=== PATIENT | female | born 1980 | race Caucasian/White ===

== ENCOUNTER → 2021-01-17 | Outpatient (CLI) | payer BC ==
--- NOTE | 2021-01-17 12:05 | CT ---
EXAMINATION TYPE: CT abdomen w con DATE OF EXAM: 01/17/2021 COMPARISON: NONE HISTORY: 40-year-old female K86.89, pancreatic mass, lump in stomach TECHNIQUE: Contiguous axial scanning of the abdomen following administration of 100 ml Isovue 300 IV contrast. Arterial phase and portal venous phase imaging is performed per pancreas protocol. Coronal /sagittal reconstructions performed. CT DLP: 280.2 mGycm Automated exposure control for dose reduction was used. FINDINGS: Heart normal size without pericardial effusion. Lung bases clear without pleural effusion. There is a 1.7 cm lesion posterior right hepatic dome that shows peripheral nodular enhancement sugge sting a benign hemangioma. Some focal fat along the anterior falciform ligament. Portal venous system is patent. Incidental 1.8 cm round fluid attenuating lesion adjacent to the cardiac apex. Favored small pericard iac cyst rather than a necrotic lymph node but follow-up is recommended. Gallbladder, adrenal glands, kidneys, spleen within normal limits. There is bulbous configuration to the head of the pancreas, refer to axial image 16 and coronal image 44. Enhancement is the same as pancreatic parenchyma elsewhere. No discrete mass is identified. No dilated small bowel, free fluid, or free air. No mesenteric or retroperitoneal lymphadenopathy. Mild to moderate stool. Some diverticular change at the junction of the descending and sigmoid colon. No pericolonic inflammatory change. Pelvis is not imaged. Bones: No osseous destructive process. IMPRESSION: 1. BULBOUS CONFIGURATION TO THE HEAD OF THE PANCREAS. ENHANCEMENT IS SIMILAR TO THE REMAINDER OF THE PANCREATIC TISSUE. UNABLE TO DELINEATE A DISCRETE MASS HERE. FINDINGS FAVORED TO REPRESENT NORMAL RUTH TOMIC VARIATION. IF THERE IS PERSISTENT CONCERN SUCH WITH ELEVATED TUMOR MARKERS OR OTHER LABORATO RY ASSESSMENT, EITHER FOLLOW-UP EUS OR PANCREAS MRI CAN BE CONSIDERED. 2. A 1.8 CM ROUND LESION IN THE LEFT PERICARDIAC REGION, FAVORED SMALL PERICARDIAC CYST RATHER THAN A NECROTIC LYMPH NODE. [address] MONTH FOLLOW-UP CT RECOMMENDED TO DEMONSTRATE STABILITY.
== END | disposition home or self-care (01) ==
LOC: RADCTMAIN 08:22
PROVIDERS: ATTEND Surgery Plastic and Reconstructive Surgery
DX: R93.3 Abnormal findings on diagnostic imaging of other parts of digestive tract (principal)
CPT/HCPCS: 74160; Q9967

== ENCOUNTER → 2021-01-22 | Outpatient (CLI) | payer BC | END | disposition home or self-care (01) | DX: K86.89 Other specified diseases of pancreas (principal) | CPT/HCPCS: 36415; 82378; 86301 ==

== ENCOUNTER 2021-02-04 08:16 | Day surgery (SDC) | payer BC ==
[2021-01-31 15:37] VITALS: BMI 23.1
--- NOTE | 2021-02-04 07:36 | P.GSHP ---
History of Present Illness H&P Date: 02/04/21 CHIEF COMPLAINT: GERD HISTORY OF PRESENT ILLNESS: The patient is a 40-year-old female who presents reports gastroesophageal reflux disease. Upper endoscopy was offered for further evaluation and management. PAST MEDICAL HISTORY: Please see list. PAST SURGICAL HISTORY: Please see list. MEDICATIONS: Please see list. ALLERGIES: Please see list. SOCIAL HISTORY: No illicit drug use FAMILY HISTORY: No reports of Crohn disease or ulcerative colitis. REVIEW OF ORGAN SYSTEMS: CONSTITUTIONAL: No reports of fevers or chills. GI: Denies any blood in stools or constipation. PHYSICAL EXAM: VITAL SIGNS: Stable GENERAL: Well-developed and pleasant in no acute distress. HEENT: No scleral icterus. Extraocular movements grossly intact. Moist buccal mucosa. NECK: Supple without lymphadenopathy. CHEST: Unlabored respirations. Equal bilateral excursions. CARDIOVASCULAR: Regular rate and rhythm. Distal 2+ pulses. ABDOMEN: Soft, nondistended. MUSCULOSKELETAL: No clubbing, cyanosis, or edema. ASSESSMENT: 1. Gastroesophageal reflux disease PLAN: 1. Recommend proceeding with an upper endoscopy Past Medical History Past Medical History: No Reported History Additional Past Medical History / Comment(s): STATES RECENT "LUMP ON STOMACH" History of Any Multi-Drug Resistant Organisms: None Reported Past Surgical History: No Surgical Hx Reported Past Anesthesia/Blood Transfusion Reactions: Motion Sickness Additional Past Anesthesia/Blood Transfusion Reaction / Comment(s): NO ANESTHESIA HX Past Psychological History: No Psychological Hx Reported Smoking Status: Never smoker Past Alcohol Use History: Heavy Past Drug Use History: None Reported - Past Family History Mother Family Medical History: No Reported History Medications and Allergies Home Medications Medication Instructions Recorded Confirmed Type No Known Home Medications 01/31/21 01/31/21 History Allergies Allergy/AdvReac Type Severity Reaction Status Date / Time No Known Allergies Allergy Verified 01/31/21 15:28
[~2021-02-04 08:16] MED LIST: LACTATED RINGERS 1,000 ML IV SCH; LIDOCAINE 1% (10MG/ML) FOR IV START INTRADERMA PRN
[2021-02-04 08:48] VITALS: TEMP 98.7
[2021-02-04] MEDS ORDERED: LIDOCAINE 1% INJ 10MG/ML (20 ML MDV) ONE (09:27)
[2021-02-04] MEDS ORDERED: PROPOFOL 10 MG/ML 20 ML VIAL IV ONE (09:27)
[2021-02-04 10:18] VITALS: BP 115/79; PULSE 82; RESP 18
--- NOTE | 2021-02-04 10:23 | P.PCN ---
Date of Procedure: 02/04/21 Description of Procedure: PREOPERATIVE DIAGNOSIS: Hiatal hernia Epigastric pain POSTOPERATIVE DIAGNOSIS: Gastritis. Gastroesophageal reflux disease. Diaphragmatic hiatal hernia OPERATION: Esophagogastroduodenoscopy with biopsies along antrum. SURGEON: Jennifer Del Real MD ANESTHESIA: MAC. INDICATIONS: The patient is a 40-year-old female who presents with a history of reflux disease. Benefits and risks of the procedure were described. Informed consent was obtained. DESCRIPTION: The patient was brought into the endoscopy suite and laid in the left lateral decubitus position. An Olympus gastroscope was passed along the posterior oropharynx down to the distal esophagus where the squamocolumnar junction was encountered at 33 cm from the incisors. The stomach was entered and no bile reflux was found. Additional findings are listed below. Biopsies with cold forceps were obtained of the antrum. The first through third portion of the duodenum was examined and unremarkable. Retroflexion of the scope confirmed Hill grade 3 lower esophageal valve. The squamocolumnar junction demonstrated LA grade B erosive esophagitis. The stomach was desufflated. The patient tolerated the procedure well. FINDINGS: Squamocolumnar junction 33 cm from the incisors. Diaphragmatic hiatus at 36 cm. Hiatal hernia, 3 cm Hill grade 3 lower esophageal valve. LA grade B erosive esophagitis. No active duodenitis. Chronic gastritis RECOMMENDATIONS: Upper endoscopy as needed. Plan - Discharge Summary New Discharge Prescriptions: Continue No Known Home Medications Discharge Medication List No Known Home Medications 01/31/21 [History] Follow up Appointment(s)/Referral(s): Jennifer Del Real MD [STAFF PHYSICIAN] - 02/26/21 Patient Instructions/Handouts: *Surgery [facility] - (Anesthesia) Endoscopy Discharge Instructions, Upper Endoscopy (DC), Hiatal Hernia (DC) Discharge Disposition: HOME SELF-CARE
== END 2021-02-04 11:10 | disposition home or self-care (01) ==
LOC: ORWHC2ENDO 08:16
PROVIDERS: ATTEND Surgery Plastic and Reconstructive Surgery
DX: K29.50 Unspecified chronic gastritis without bleeding (principal); K44.9 Diaphragmatic hernia without obstruction or gangrene; K21.9 Gastro-esophageal reflux disease without esophagitis; R10.13 Epigastric pain; I25.10 Atherosclerotic heart disease of native coronary artery without angina pectoris; T75.3XXA Motion sickness, initial encounter
CPT/HCPCS: 43239; 81025; 88305; J2001; J2704